=== PATIENT | male | born 1980 | race Caucasian/White ===

== ENCOUNTER 2017-04-27 14:32 | Inpatient (IN) | payer MEDICAID ==
[~2017-04-27] VITALS: Ht 160 cm; Wt 71.5 kg
[2017-04-27] VITALS (20 sets, daily range): BP systolic 116–164; BP diastolic 56–86; PULSE 65–102; RESP 18–29; Ht 160 cm; Wt 71.5 kg
[~2017-04-27 14:32] MED LIST: DESFLURANE 15 MIN ONE; LIDOCAINE 2% (SDV) 5 ML INJ ONE; PROPOFOL 200 MG INJ ONE; SUCCINYLCHOLINE CHLORIDE 100 MG/5 ML SYG IV ONE
[2017-04-27] MEDS ORDERED: ONDANSETRON 4 MG INJ IV STA (14:51)
[2017-04-27] MEDS ORDERED: morphine 4 MG/ML VIAL IV STA ×2 (14:51→16:07)
[2017-04-27] MEDS ORDERED: SOD CHLORIDE 0.9% 1,000 ML IV STA (14:51)
--- NOTE | 2017-04-27 15:21 | RADRPT ---
PROCEDURE: CT Abdomen and Pelvis without contrast. CLINICAL INDICATION: Abdominal pain TECHNIQUE: CT scan of the abdomen and pelvis without contrast was performed on a multi-slice CT [facility] without intravenous contrast. Coronal and sagittal reformatted images were obtained from the axial source images. Images were reviewed on a high-resolution PACS workstation. One or more of the following does reduction techniques were used: Automated exposure control; adjustment of the mA an d/or kV according to patient size; use of the aorta of reconstruction technique. The total exam CTD I equals 11.9 mGy and the total exam DLP equals 717.06 mGy-cm. COMPARISON: None available. FINDINGS: The lung bases are clear. Heart size is normal, and there is no evidence of pericardial thickening or effusion. There is decreased attenuation of the hepatic parenchyma consistent with fatty infiltration. The li felipe, spleen, and pancreas are otherwise normal given the limitations of a noncontrast CT examination . The gallbladder is normal. The adrenal glands are normal. The kidneys without renal calculus or hydronephrosis. The aorta is of normal caliber. There is no retroperitoneal lymph node enlargment. There is no evidence of large or small bowel obstruction. There are multiple appendicoliths within the appendix which appears enlarged measuring up to 1.2 cm in diameter. There are questionable subt le inflammatory changes, particular at the level of the tip of the appendix, best seen on coronal im aging. There is no lauren adjacent inflammation. No fluid collections are seen. There is no free fluid. There is a tiny periumbilical hernia containing only fat No enlarged pelvic sidewall lymph nodes are seen. The bladder is decompressed and collapsed. No f ree fluid is identified. The inguinal regions are unremarkable. The bones are intact. IMPRESSION: 1. Enlarged appendix containing multiple appendicoliths. There is subtle inflammatory change at th e level of the distal tip of the appendix. Findings are concerning for acute appendicitis. 2. Fatty infiltration of the liver. 3. Tiny periumbilical hernia containing only fat. RPTAT: KK .Oscar Orlando MD, MD Date Time Electronically viewed and signed by .Oscar Orlando MD, MD on 04/27/2017 15:21 .Ana
[2017-04-27 15:29] LABS: BASOPHILS % 0.1 % (0.0-2.0); HEMATOCRIT 43.2 % (42.0-52.0); HEMOGLOBIN 15.1 g/dl (14.0-18.0); LYMPHOCYTES # 0.9 10^3/ul (0.8-2.9); MEAN CORPUSCULAR HEMOGLOBIN 31.5 pg (29.0-33.0); MEAN PLATELET VOLUME 9.3 fl (7.4-10.4); MONOCYTES % 6.4 % (0.0-11.0); NEUTROPHIL # 13.3 10^3/ul (1.6-7.5); NEUTROPHILS % 87.1 % (39.0-77.0); PLATELET COUNT 277 10^3/UL (140-415); RED CELL DISTRIBUTION WIDTH 12.4 % (11.5-14.5); WHITE BLOOD COUNT 15.2 10^3/ul (4.8-10.8)
[2017-04-27 15:44] LABS: ALBUMIN 4.7 g/dl (3.3-4.9); ALBUMIN/GLOBULIN RATIO 1.17; BILIRUBIN,INDIRECT 0.8 mg/dl (0-1.1); BILIRUBIN,TOTAL 0.8 mg/dl (0.2-1.3); CALCIUM 9.6 mg/dl (8.4-10.2); CREATININE 0.65 mg/dl (0.61-1.24); POTASSIUM 3.6 mmol/L (3.5-5.1); TOTAL PROTEIN 8.7 g/dl (6.1-8.1)
[2017-04-27] MEDS ORDERED: HYDROmorphONE 1 MG/ML SYG IV STA (16:07)
--- NOTE | 2017-04-27 16:17 | ERD ---
ER Documentation Chief Complaint Date/Time DATE: 04/27/17 TIME: 16:11 Chief Complaint Complains of abdominal pain x 5am this morning (ROYAL MARTINEZ PA-C) HPI 36-year-old male patient with a previous history of seizures presents to the ED complaining of abdominal pain that occurred at 5 am. Reports that he feels nauseous but denies any vomiting. Reports that the pain is mainly in the lower quadrant region below the belly button and radiates diffusely. Describes the pain as achy and crampy. Rates the pain a 10 out of 10. States that his last meal was at 9 am. Reports that he has normal daily bowel movements. Reports that he drinks about 4 cans of beer per day. Patient smokes 1 cigarette per day. Denies any diarrhea, chest pain, shortness of breath, melena, hematemesis , constipation, hemoptysis. Denies any scrotal pain, dysuria, urgency, frequency, hematuria. Patient reports that he no longer gets seizures and does not remember the medication that he previously took for his history of seizures. (ROYAL MARTINEZ PA-C) This patient was seen by myself in conjunction with the PA. Please see the PAs note for full details. Very briefly, this is a 36-year-old male with no significant past medical history who is presenting with acute onset generalized abdominal pain but worse in the right lower quadrant since 5 AM this morning which woke him from sleep. He has had a decreased appetite with nausea but no vomiting. He has not had any fever or chills. He had felt well prior to the onset of his symptoms. (CARLOS GUERRA MD) ROS All systems reviewed and are negative except as per history of present illness. (ROYAL MARTINEZ PA-C) 14 point review of systems was completed and negative other than what was dictated in the HPI (CARLOS GUERRA MD) Medications Home Meds No Active Prescriptions or Reported Meds Allergies Allergies: Coded Allergies: No Known Allergy (Unverified , 04/27/17) PMhx/Soc Medical and Surgical Hx: pt denies Medical Hx, pt denies Surgical Hx (CARLOS GUERRA MD) FmHx Family History: No coronary disease, No diabetes (CARLOS GUERRA MD) Physical Exam Vitals Vital Signs Date Time Temp Pulse Resp B/P Pulse Ox O2 Delivery O2 Flow Rate FiO2 8/7/17 14:36 97.4 81 20 133/70 99 (CARLOS GUERRA MD) Physical Exam Const: [id number], well-nourished. In no acute distress. Head: Atraumatic, normocephalic Eyes: Normal Conjunctiva without injection. No purulent discharge. ENT: Normal external ear, nose. Moist oropharynx without tonsillar exudates. Non -erythematous pharynx. Uvula midline. No drooling. No trismus. Neck: No cervical midline tenderness. Full range of motion. No meningismus. No cervical lymphadenopathy. No JVD. Resp: Clear to auscultation bilaterally. No wheezing, rhonchi, rales, or crackles. No accessory muscle use. No retractions. Cardio: Regular rate and rhythm. No murmurs, rubs or gallops. Abd: Soft, generalized tenderness predominantly below the umbilicus, non distended. Normal bowel sounds. No palpable masses. No rebound tenderness. No guarding. Negative McBurney's point. Positive psoas sign. Positive obturator sign. Skin: No petechiae or rashes Back: No midline tenderness. No CVA tenderness. Ext: No cyanosis, or edema. Neur: Awake and alert. Normal gait. Normal coordination. Psych: Normal Mood and Affect (ROYAL MARTINEZ PA-C) Result Diagram: 04/27/17 1512 04/27/17 1512 Results 24 hrs Laboratory Tests Test 04/27/17 15:12 04/27/17 17:15 White Blood Count 15.210^3/ul Red Blood Count 4.8010^6/ul Hemoglobin 15.1g/dl Hematocrit 43.2% Mean Corpuscular Volume 90.0fl Mean Corpuscular Hemoglobin 31.5pg Mean Corpuscular Hemoglobin Concent 35.0g/dl Red Cell Distribution Width 12.4% Platelet Count 98371^3/UL Mean Platelet Volume 9.3fl Neutrophils % 87.1% Lymphocytes % 6.0% Monocytes % 6.4% Eosinophils % 0.0% Basophils % 0.1% Nucleated Red Blood Cells % 0.0/100WBC Neutrophils # 13.310^3/ul Lymphocytes # 0.910^3/ul Monocytes # 1.010^3/ul Eosinophils # 0.010^3/ul Basophils # 0.010^3/ul Nucleated Red Blood Cells # 0.010^3/ul Sodium Level 141mmol/L Potassium Level 3.6mmol/L Chloride Level 97mmol/L Carbon Dioxide Level 25mmol/L Anion Gap 23 Blood Urea Nitrogen 6mg/dl Creatinine 0.65mg/dl Glucose Level 117mg/dl Calcium Level 9.6mg/dl Total Bilirubin 0.8mg/dl Direct Bilirubin 0.00mg/dl Indirect Bilirubin 0.8mg/dl Aspartate Amino Transf (AST/SGOT) 33IU/L Alanine Aminotransferase (ALT/SGPT) 51IU/L Alkaline Phosphatase 75IU/L Total Protein 8.7g/dl Albumin 4.7g/dl Globulin 4.00g/dl Albumin/Globulin Ratio 1.17 Lipase 84U/L Urine Color YELLOW Urine Clarity CLEAR Urine pH 7.0 Urine Specific [place] 1.010 Urine Ketones 2+mg/dL Urine Nitrite NEGATIVEmg/dL Urine Bilirubin NEGATIVEmg/dL Urine Urobilinogen NEGATIVEmg/dL Urine Leukocyte Esterase NEGATIVELeu/ul Urine Hemoglobin NEGATIVEmg/dL Urine Glucose NEGATIVEmg/dL Urine Total Protein NEGATIVEmg/dl Current Medications Medications (Trade) Dose Ordered Sig/Ngozi Route PRN Reason Start Time Stop Time Status Last Admin Dose Admin Sodium Chloride (NS) 1,000 ml @ 1,000 mls/hr Q1H STAT IV 04/27/17 14:51 04/27/17 15:50 DC 04/27/17 15:16 Morphine Sulfate (morphine) 4 mg ONCE STAT IV 04/27/17 14:51 04/27/17 14:53 DC 04/27/17 15:16 Ondansetron HCl (Zofran Inj) 4 mg ONCE STAT IV 04/27/17 14:51 04/27/17 14:53 DC 04/27/17 15:16 Morphine Sulfate (morphine) 3 mg ONCE STAT IV 04/27/17 16:07 04/27/17 16:08 Cancel Hydromorphone HCl 1 mg 1 mg ONCE STAT IV 04/27/17 16:07 04/27/17 16:08 DC 04/27/17 16:14 Ceftriaxone Sodium 50 ml @ 100 mls/hr ONCE ONCE IVPB 04/27/17 16:30 04/27/17 16:59 DC 04/27/17 17:16 Metronidazole 100 ml @ 100 mls/hr ONCE ONCE IVPB 04/27/17 16:30 04/27/17 17:29 DC Sodium Chloride 1,000 ml @ 1,000 mls/hr Q1H ONCE IV 04/27/17 16:30 04/27/17 17:29 DC 04/27/17 17:16 Sodium Chloride (NS) 1,000 ml @ 80 mls/hr [id number] IV 04/27/17 16:43 04/28/17 05:12 Ondansetron HCl (Zofran Inj) 4 mg BRIDGE ORDER PRN IV NAUSEA AND/OR VOMITING 04/27/17 17:00 04/27/17 17:00 DC Acetaminophen (Tylenol Tab) 650 mg ER BRIDGE PRN PO MILD PAIN/FEVER 04/27/17 17:00 04/27/17 17:00 DC IV Flush (NS 3 ml) 3 ml PER PROTOCOL IV 04/27/17 17:00 Ondansetron HCl (Zofran Tab) 4 mg Q6H PRN PO NAUSEA AND/OR VOMITING 04/27/17 17:00 Ondansetron HCl (Zofran Inj) 4 mg Q6H PRN IV NAUSEA AND/OR VOMITING 04/27/17 17:00 Metoclopramide HCl (Reglan) 10 mg Q6H PRN IV NAUSEA AND/OR VOMITING 04/27/17 17:00 Acetaminophen (Tylenol Tab) 650 mg Q6H PRN PO PAIN LEVEL 1-3 OR FEVER 04/27/17 17:00 Ibuprofen (Motrin) 600 mg Q6H PRN PO PAIN LEVEL 1-3 04/27/17 17:00 Acetaminophen/ Hydrocodone Bitart ([place] (5/325)) 1 tab Q6H PRN PO MODERATE PAIN LEVEL 4-6 04/27/17 17:00 Morphine Sulfate (morphine) 2 mg Q4H PRN IV SEVERE PAIN LEVEL 7-10 04/27/17 17:00 Docusate Sodium (Colace) 100 mg Q12H PRN PO CONSTIPATION 04/27/17 17:00 Magnesium Hydroxide (Milk Of Mag) 30 ml DAILY PRN PO CONSTIPATION 04/27/17 17:00 Bisacodyl (Dulcolax) 5 mg DAILY PRN PO CONSTIPATION 04/27/17 17:00 Enoxaparin Sodium (Lovenox) 40 mg DAILY SC 04/28/17 09:00 (CARLOS GUERRA MD) Procedures/MDM This is a 36-year-old male patient with a previous history of seizures presents to the ED complaining of abdominal pain that started at 5 am. Patient is afebrile and nontoxic-appearing. Patient is in distress due to pain. Patient was further worked up with CBC, CMP, lipase, UA, CT of abdomen and pelvis without contrast. Patient's pain and symptoms have improved after treatment with 4 mg IV morphine, 1 mg IV Dilaudid, 1 L of normal saline. A differential diagnosis considered includes but is not limited to gastritis, GERD, peptic ulcer disease, cholecystitis, choledocholithiasis, cholangitis, pancreatitis, appendicitis, bowel obstruction, ileus, volvulus, nephrolithiasis , pyelonephritis, hepatitis, perforated viscus, diverticulitis, abdominal hernia , acute abdomen, mesenteric ischemia or other emergent conditions. CBC: Leukocytosis of 15.2 No e/o anemia. CMP: No e/o severe acidosis, alkalosis, renal failure, diabetic ketoacidosis, liver disease Lipase within normal limits. Pending urinalysis PROCEDURE: CT Abdomen and Pelvis without contrast. CLINICAL INDICATION: Abdominal pain TECHNIQUE: CT scan of the abdomen and pelvis without contrast was performed on a multi-slice CT scanner without intravenous contrast. Coronal and sagittal reformatted images were obtained from the axial source images. Images were reviewed on a high-resolution PACS workstation. One or more of the following does reduction techniques were used: Automated exposure control; adjustment of the mA and/or kV according to patient size; use of the aorta of reconstruction technique. The total exam CTDI equals 11.9 mGy and the total exam DLP equals 717.06 mGy-cm. COMPARISON: None available. FINDINGS: The lung bases are clear. Heart size is normal, and there is no evidence of pericardial thickening or effusion. There is decreased attenuation of the hepatic parenchyma consistent with fatty infiltration. The liver, spleen, and pancreas are otherwise normal given the limitations of a noncontrast CT examination. The gallbladder is normal. The adrenal glands are normal. The kidneys without renal calculus or hydronephrosis. The aorta is of normal caliber. There is no retroperitoneal lymph node enlargment. There is no evidence of large or small bowel obstruction. There are multiple appendicoliths within the appendix which appears enlarged measuring up to 1.2 cm in diameter. There are questionable subtle inflammatory changes, particular at the level of the tip of the appendix, best seen on coronal imaging. There is no lauren adjacent inflammation. No fluid collections are seen. There is no free fluid. There is a tiny periumbilical hernia containing only fat No enlarged pelvic sidewall lymph nodes are seen. The bladder is decompressed and collapsed. No free fluid is identified. The inguinal regions are unremarkable. The bones are intact. IMPRESSION: 1. Enlarged appendix containing multiple appendicoliths. There is subtle inflammatory change at the level of the distal tip of the appendix. Findings are concerning for acute appendicitis. 2. Fatty infiltration of the liver. 3. Tiny periumbilical hernia containing only fat. Patient has an enlarged appendix containing multiple appendicoliths with subtle inflammatory change at the level of distal tip of the appendix concerning for acute appendicitis. This case has been discussed with my supervising physician , Dr. Guerra who will consult the general surgeon. Dr. Guerra also evaluated patient at this time. An additional 1 L normal saline, 1 g IV ceftriaxone, 500 mg IV Flagyl was ordered to treat patient. Patient will be admitted at this time for surgical consultation. Patient's last meal was at 9 AM on April 27, 2017. Patient understood his admission. Patient's questions were answered. Patient is hemodynamically stable. (ROYAL MARTINEZ PA-C) Patient symptoms warrant an abdominal workup. The patient's blood work revealed leukocytosis with a white count of 15. The patient's CT scan revealed findings concerning for an acute appendicitis. The patient will be admitted to the hospitalist service for further evaluation and management. General surgical consultation was completed. The patient will require antibiotics in the hospital. The PA was instructed to order Rocephin and Flagyl. Patient also be given IV fluids. His pain and nausea will be controlled while in the ER. (CARLOS GUERRA MD) Departure Diagnosis: Primary Impression: Appendicitis Appendicitis type: acute appendicitis Acute appendicitis type: unspecified acute appendicitis type Qualified Code: K35.80 - Acute appendicitis, unspecified acute appendicitis type Condition: Fair ROYAL MARTINEZ PA-C Apr 27, 2017 16:17 CARLOS GUERRA MD Apr 27, 2017 17:44
[2017-04-27] MEDS ORDERED: CEFTRIAXONE 1 GM/50 ML (PMX) 50 ML IVPB ONE (16:30)
[2017-04-27] MEDS ORDERED: metroNIDAZOLE 500 MG/NS (PMX) 100 ML IVPB ONE (16:30)
[2017-04-27] MEDS ORDERED: SOD CHLORIDE 0.9% 1,000 ML IV ONE (16:30)
[2017-04-27] MEDS ORDERED: SOD CHLORIDE 0.9% 1,000 ML IV SCH (16:43)
--- NOTE | 2017-04-27 16:47 | HP ---
Date/Time of Note Date/Time of Note DATE: 04/27/17 TIME: 16:47 Assessment/Plan VTE Prophylaxis VTE Prophylaxis Intervention: SCD's Assessment/Plan Assessment/Plan 36 yo M admitted for abd pain, found to have acute appendicitis PLAN OR tanner, gen surg already following abx/FEN as per gen surg close monitoring for possible EtOH withdrawal post op HPI/ROS Admit Date/Time Admit Date/Time Hx of Present Illness CC: abd pain x 1 day HPI 36 yo M with pmhx seizures not on AEDs x several mos with no seizure episodes, moderate EtOH consumption presents with abd pain x 1 day. Pt awoke this AM with severe abd pain. Tried conservative management at home with no improvement. Pt came to ER and CT with appendicitis. PMH/Family/Social Past Medical History as per HPI Past Surgical History Past Surgical Hx: no surgical history Family History Significant Family History: no pertinent family hx Social History 3-4 beers/day Smoking Status: Current some day smoker Exam/Review of Systems Vital Signs Vitals Vital Signs Date Time Temp Pulse Resp B/P Pulse Ox O2 Delivery O2 Flow Rate FiO2 04/27/17 14:36 97.4 81 20 133/70 99 Exam Exam nad, laying in bed EOMI MMM no mrg lungs clear abd soft no rashes no le edema labs and imaging reviewed Labs Result Diagram: 04/27/17 1512 04/27/17 1512 Medications Medications Current Medications Ceftriaxone Sodium 50 ml @ 100 mls/hr ONCE ONCE IVPB ; Start 04/27/17 at 16:30 ; Stop 04/27/17 at 16:59 Metronidazole 100 ml @ 100 mls/hr ONCE ONCE IVPB ; Start 04/27/17 at 16:30; Stop 04/27/17 at 17:29 Sodium Chloride 1,000 ml @ 1,000 mls/hr Q1H ONCE IV ; Start 04/27/17 at 16:30; Stop 04/27/17 at 17:29 Sodium Chloride (NS) 1,000 ml @ 80 mls/hr [id number] IV ; Start 04/27/17 at 16:43; Stop 04/28/17 at 05:12 MEGAN RANDHAWA MD Apr 27, 2017 16:47
[2017-04-27] MEDS ORDERED: NACL 0.9% 3 ML SYG IV SCH (17:00)
[2017-04-27] MEDS ORDERED: ONDANSETRON 4 MG INJ IV PRN ×4 (17:00→19:30)
[2017-04-27] MEDS ORDERED: METOCLOPRAMIDE 10 MG INJ IV PRN (17:00)
[2017-04-27] MEDS ORDERED: DOCUSATE SODIUM 100 MG CAP PO PRN (17:00)
[2017-04-27] MEDS ORDERED: morphine 2 MG INJ IV PRN (17:00)
[2017-04-27] MEDS ORDERED: HYDROCODONE/APAP (5/325) TAB PO PRN ×2 (17:00→19:30)
[2017-04-27] MEDS ORDERED: MAGNESIUM HYDROXIDE 30ML CUP PO PRN (17:00)
[2017-04-27] MEDS ORDERED: IBUPROFEN 600 MG TAB PO PRN (17:00)
[2017-04-27] MEDS ORDERED: BISACODYL (EC) 5 MG TAB PO PRN (17:00)
[2017-04-27] MEDS ORDERED: ACETAMINOPHEN 325 MG TAB PO PRN ×3 (17:00→19:30)
[2017-04-27] MEDS ORDERED: ONDANSETRON 4 MG TAB PO PRN (17:00)
[2017-04-27 17:32] LABS: ADD UMIC NO; UR ASCORBIC ACID NEGATIVE (NEGATIVE); UR BILIRUBIN (Dip) NEGATIVE (NEGATIVE); UR BLOOD (Dip) NEGATIVE (NEGATIVE); UR CLARITY CLEAR (CLEAR); UR COLOR YELLOW (YELLOW); UR GLUCOSE (Dip) NEGATIVE (NEGATIVE); UR KETONES (Dip) 2+ mg/dL (NEGATIVE); UR LEUKOCYTE ESTERASE (Dip) NEGATIVE Leu/ul (NEGATIVE); UR NITRITE (Dip) NEGATIVE (NEGATIVE); UR TOTAL PROTEIN (Dip) NEGATIVE (NEGATIVE); UR UROBILINOGEN (Dip) NEGATIVE (NEGATIVE)
--- NOTE | 2017-04-27 17:32 | CONS ---
Date/Time of Note Date/Time of Note DATE: 04/27/17 TIME: 17:29 Assessment/Plan Assessment/Plan Chief Complaint/Hosp Course 36-year-old male with acute appendicitis. This has been confirmed via CT scan. * Continue nothing by mouth * Broad-spectrum intravenous antibiotics * IV fluid hydration * Pain control Definitive treatment will consist of laparoscopic appendectomy; possible open. This has been explained to the patient along with all risks and benefits of the procedure. He fully understands and is agreeable to the treatment plan as outlined. Informed consent will be obtained and the patient will be scheduled for laparoscopic appendectomy; possible open Problems: Consultation Date/Type/Reason Admit Date/Time Date of Consultation: Apr 27, 2017 Type of Consultation: GENERAL SURGERY Reason for Consultation Abdominal pain Hx of Present Illness Patient is a 36-year-old male who presented to the emergency room complaining of abdominal pain. The pain started approximately 5 AM this morning. It was initially periumbilical and epigastric in location. It has since migrated towards the lower abdomen and right lower quadrant. He reports some nausea, but no vomiting. There is also been diarrhea. He denies any fever /chills. He denies any similar episodes of pain in the past. On arrival to the emergency room he was found to be hemodynamically stable. He had a leukocytosis of 15,000. A CT scan of the abdomen and pelvis showed dilated appendix with multiple appendicoliths and some mild inflammatory changes. 14 point review of systems was conducted and was negative except for that which is mentioned in HPI Past Medical History Medical History: other (Seizure disorder) Past Surgical History Past Surgical Hx: no surgical history Family History Significant Family History: no pertinent family hx Social History Alcohol Use: heavy Smoking Status: Current some day smoker Drug Use: other Exam/Review of Systems Vital Signs Vitals Vital Signs Date Time Temp Pulse Resp B/P Pulse Ox O2 Delivery O2 Flow Rate FiO2 04/27/17 14:36 97.4 81 20 133/70 99 Exam GENERAL: Awake, alert, oriented x 3. In mild discomfort secondary to abdominal pain. SKIN: No jaundice. HEENT: PERRLA, EOMI, No Scleral Icterus NECK: Supple without JVD CARDIOVASCULAR: S1S2, regular rate and rhythm. No murmurs appreciated. RESPIRATORY: Clear to auscultation bilaterally. ABDOMEN: Soft, bowel sounds present, nondistended, right lower quadrant and suprapubic tenderness to palpation with localized rebound. No evidence of diffuse peritonitis. EXTREMITIES: Free range of motion x 4. No cyanosis, edema, or clubbing. NEUROLOGIC: Cranial nerves II-XII are intact. Sensation is intact grossly. Results Result Diagram: 04/27/17 1512 04/27/17 1512 Results 24 hrs Laboratory Tests Test 04/27/17 15:12 White Blood Count 15.2 H Red Blood Count 4.80 Hemoglobin 15.1 Hematocrit 43.2 Mean Corpuscular Volume 90.0 Mean Corpuscular Hemoglobin 31.5 Mean Corpuscular Hemoglobin Concent 35.0 Red Cell Distribution Width 12.4 Platelet Count 277 Mean Platelet Volume 9.3 Neutrophils % 87.1 H Lymphocytes % 6.0 L Monocytes % 6.4 Eosinophils % 0.0 Basophils % 0.1 Nucleated Red Blood Cells % 0.0 Neutrophils # 13.3 H Lymphocytes # 0.9 Monocytes # 1.0 H Eosinophils # 0.0 Basophils # 0.0 Nucleated Red Blood Cells # 0.0 Sodium Level 141 Potassium Level 3.6 Chloride Level 97 Carbon Dioxide Level 25 Anion Gap 23 H Blood Urea Nitrogen 6 L Creatinine 0.65 Glucose Level 117 Calcium Level 9.6 Total Bilirubin 0.8 Direct Bilirubin 0.00 Indirect Bilirubin 0.8 Aspartate Amino Transf (AST/SGOT) 33 Alanine Aminotransferase (ALT/SGPT) 51 Alkaline Phosphatase 75 Total Protein 8.7 H Albumin 4.7 Globulin 4.00 H Albumin/Globulin Ratio 1.17 Lipase 84 Medications Medications Current Medications Metronidazole 100 ml @ 100 mls/hr ONCE ONCE IVPB ; Start 04/27/17 at 16:30; Stop 04/27/17 at 17:29 Sodium Chloride 1,000 ml @ 1,000 mls/hr Q1H ONCE IV Last administered on t 17:16; Admin Dose 1,000 MLS/HR; Start 04/27/17 at 16:30; Stop 04/27/17 at 17: 29 Sodium Chloride (NS) 1,000 ml @ 80 mls/hr [id number] IV ; Start 04/27/17 at 16:43; Stop 04/28/17 at 05:12 Ondansetron HCl (Zofran Tab) 4 mg Q6H PRN PO NAUSEA AND/OR VOMITING; Start 04/27 at 17:00 Ondansetron HCl (Zofran Inj) 4 mg Q6H PRN IV NAUSEA AND/OR VOMITING; Start 04/27 at 17:00 Metoclopramide HCl (Reglan) 10 mg Q6H PRN IV NAUSEA AND/OR VOMITING; Start 04/27 at 17:00 Acetaminophen (Tylenol Tab) 650 mg Q6H PRN PO PAIN LEVEL 1-3 OR FEVER; Start at 17:00 Ibuprofen (Motrin) 600 mg Q6H PRN PO PAIN LEVEL 1-3; Start 04/27/17 at 17:00 Acetaminophen/ Hydrocodone Bitart ([place] (5/325)) 1 tab Q6H PRN PO MODERATE PAIN LEVEL 4-6; Start 04/27/17 at 17:00 Morphine Sulfate (morphine) 2 mg Q4H PRN IV SEVERE PAIN LEVEL 7-10; Start at 17:00 Docusate Sodium (Colace) 100 mg Q12H PRN PO CONSTIPATION; Start 04/27/17 at 17: 00 Magnesium Hydroxide (Milk Of Mag) 30 ml DAILY PRN PO CONSTIPATION; Start at 17:00 Bisacodyl (Dulcolax) 5 mg DAILY PRN PO CONSTIPATION; Start 04/27/17 at 17:00 Enoxaparin Sodium (Lovenox) 40 mg DAILY SC ; Start 04/28/17 at 09:00 Procedures Procedures PROCEDURE: CT Abdomen and Pelvis without contrast. CLINICAL INDICATION: Abdominal pain TECHNIQUE: CT scan of the abdomen and pelvis without contrast was performed on a multi-slice CT scanner without intravenous contrast. Coronal and sagittal reformatted images were obtained from the axial source images. Images were reviewed on a high-resolution PACS workstation. One or more of the following does reduction techniques were used: Automated exposure control; adjustment of the mA and/or kV according to patient size; use of the aorta of reconstruction technique. The total exam CTDI equals 11.9 mGy and the total exam DLP equals 717.06 mGy-cm. COMPARISON: None available. FINDINGS: The lung bases are clear. Heart size is normal, and there is no evidence of pericardial thickening or effusion. There is decreased attenuation of the hepatic parenchyma consistent with fatty infiltration. The liver, spleen, and pancreas are otherwise normal given the limitations of a noncontrast CT examination. The gallbladder is normal. The adrenal glands are normal. The kidneys without renal calculus or hydronephrosis. The aorta is of normal caliber. There is no retroperitoneal lymph node enlargment. There is no evidence of large or small bowel obstruction. There are multiple appendicoliths within the appendix which appears enlarged measuring up to 1.2 cm in diameter. There are questionable subtle inflammatory changes, particular at the level of the tip of the appendix, best seen on coronal imaging. There is no lauren adjacent inflammation. No fluid collections are seen. There is no free fluid. There is a tiny periumbilical hernia containing only fat No enlarged pelvic sidewall lymph nodes are seen. The bladder is decompressed and collapsed. No free fluid is identified. The inguinal regions are unremarkable. The bones are intact. IMPRESSION: 1. Enlarged appendix containing multiple appendicoliths. There is subtle inflammatory change at the level of the distal tip of the appendix. Findings are concerning for acute appendicitis. 2. Fatty infiltration of the liver. 3. Tiny periumbilical hernia containing only fat. RPTAT: KK .Oscar Orlando MD, MD Date Time Electronically viewed and signed by .Oscar Orlando MD, on 2016 15:21 .B/ CC: ROYAL MARTINEZ PA-C, MICHAEL A. MD Apr 27, 2017 17:32
[2017-04-27] MEDS ORDERED: BUPIVACAINE 0.25%/EPI (SDV) 10 ML INJ ONE (18:11)
[2017-04-27] MEDS ORDERED: DIPHENHYDRAMINE 50 MG INJ IV PRN (18:30)
[2017-04-27] MEDS ORDERED: PROCHLORPERAZINE 10 MG INJ IV PRN (18:30)
[2017-04-27] MEDS ORDERED: LORAZEPAM 2 MG INJ IV PRN (18:30)
[2017-04-27] MEDS ORDERED: HYDROmorphONE (0.2 MG/ML) 10ML SYG IV PRN ×2 (18:30)
[2017-04-27] MEDS ORDERED: MEPERIDINE 25 MG INJ IV PRN (18:30)
[2017-04-27] MEDS ORDERED: FENTAnyl 50 MCG/ML VIAL ONE (18:43)
[2017-04-27] MEDS ORDERED: ONDANSETRON 4 MG INJ ONE (18:44)
[2017-04-27] MEDS ORDERED: DEXAMETHASONE 4 MG/ML 1 ML INJ ONE (18:44)
[2017-04-27] MEDS ORDERED: MIDAZOLAM 1 MG/ML 2 ML INJ ONE (18:44)
[2017-04-27] MEDS ORDERED: FAMOTIDINE 20 MG INJ ONE (18:45)
[2017-04-27] MEDS ORDERED: PHENYLephrine (100 MCG/ML) 5ML SYG ONE (18:48)
[2017-04-27] MEDS ORDERED: HYDROCODONE/APAP (10/325) TAB PO PRN (19:30)
[2017-04-27] MEDS ORDERED: HYDROmorphONE 1 MG/ML SYG IV PRN (19:30)
[2017-04-27] MEDS ORDERED: AMPICILLIN/SULB 3 GM/NS (PMX) 100 ML IVPB SCH (19:30)
--- NOTE | 2017-04-27 19:30 | OPR ---
Date/Time of Note Date/Time of Note DATE: 04/27/17 TIME: 19:26 Operative Report Procedure Date: Apr 27, 2017 Preoperative Diagnosis Acute appendicitis with localized peritonitis Postoperative Diagnosis Acute appendicitis with localized peritonitis Operation Performed Laparoscopic appendectomy Surgeon: LAVINIA AN MD Anesthesia Type: general Anesthesiologist: SULY WHITTEN DO Estimated Blood Loss: minimal Specimens Appendix Complications: no Pt Condition Post Procedure: stable Disposition: PACU Indications Patient is a 36-year-old male who presented to the emergency room complaining of a 1 day history of right lower quadrant abdominal pain. The patient had clinical signs and symptoms of acute appendicitis which was confirmed via CT scan. He was therefore admitted, kept nothing by mouth, started on broad-spectrum intravenous antibiotics and scheduled for laparoscopic appendectomy; possible open as definitive treatment. All risks and benefits of the procedure including but not limited to: Wound infection, excessive bleeding, injury to intra-abdominal organs, conversion to open procedure etc. were explained to the patient in full detail. The patient fully understood and wished to proceed with the procedure. Informed consent was therefore obtained. Operative\Procedure Findings Nonperforated appendicitis Procedure Description The patient was brought to the operating room and placed supine on the operating table. Bilateral sequential compression devices were placed on both lower extremities. Patient was given a dose of broad-spectrum intravenous antibiotics while in the emergency room. After the induction of smooth general endotracheal anesthesia the patient's abdomen was prepped and draped in the standard surgical fashion. A 5 mm incision was made in the superior umbilicus and a Veress needle was used to access the intra-abdominal cavity atraumatically. Pneumoperitoneum was then obtained and the Veress needle was exchanged for a 5 mm trocar through which a 5 mm laparoscope was placed. Two further working ports were then placed, a 12 mm port in the midline suprapubic area and another 5 mm port midway between the suprapubic and umbilical port sites. All port sites were anesthetized with 0.25% Marcaine with epinephrine prior to incision. Diagnostic laparoscopy showed murky fluid in the patient's pelvis. This was suctioned out using a pool sucker. Attention was then turned towards the right lower quadrant. Using atraumatic graspers, the appendix was grasped and retracted superiorly and medially exposing the mesoappendix. The appendix appeared erythematous and inflamed consistent with acute appendicitis, but not perforated. Using the harmonic scalpel the mesoappendix was taken down to the level of the appendiceal base. The appendix was then transected at its base using a firing of the laparoscopic LEXA stapler. Once completely free the appendix was placed in an Endo Catch bag and withdrawn through the suprapubic port site and passed off the field as specimen. Hemostasis was then inspected for and noted to be total. The abdomen was then irrigated with copious amounts of warm normal saline and the irrigant returned crystal clear. The fascia of the suprapubic port site was then reapproximated using an Endo Close device and 0 Vicryl suture. Pneumoperitoneum was then released and all remaining trochars were withdrawn under direct vision. The subcutaneous tissues were irrigated with more warm normal saline and further local anesthesia was applied around the skin of the incision sites. The skin was then reapproximated using 4-0 Monocryl sutures in subcuticular fashion. The incisions were cleaned and Dermabond was applied and the patient was awoken from anesthesia and transported to the recovery room in stable condition. All counts were correct at the end of the case x 2. LAVINIA AN MD Apr 27, 2017 19:30
[2017-04-27] MEDS: AMPICILLIN/SULB 3 GM/NS (PMX) 100 ML IVPB SCH (22:25)
[2017-04-28] MEDS ORDERED: LORAZEPAM 2 MG INJ IV ONE ×2 (01:51→02:30)
[2017-04-28] MEDS ORDERED: LORAZEPAM 2 MG INJ IV PRN ×2 (02:30→02:32)
[2017-04-28] MEDS: AMPICILLIN/SULB 3 GM/NS (PMX) 100 ML IVPB SCH ×3 (04:24→14:25)
[2017-04-28 05:32] LABS: ABNORMAL IP MESSAGE 1; BASOPHILS % 0.1 % (0.0-2.0); HEMATOCRIT 41.3 % (42.0-52.0); LYMPHOCYTES # 0.6 10^3/ul (0.8-2.9); LYMPHOCYTES % 4.8 % (15.0-51.0); MEAN CORPUSCULAR HEMOGLOBIN 31.1 pg (29.0-33.0); MEAN CORPUSCULAR HGB CONC 33.9 g/dl (32.0-37.0); MEAN CORPUSCULAR VOLUME 91.8 fl (82.0-101.0); MONOCYTE # 0.5 10^3/ul (0.3-0.9); NEUTROPHIL # 10.6 10^3/ul (1.6-7.5); NEUTROPHILS % 90.9 % (39.0-77.0); PLATELET COUNT 259 10^3/UL (140-415); POSITIVE DIFF @See below; RED CELL DISTRIBUTION WIDTH 12.5 % (11.5-14.5); WHITE BLOOD COUNT 11.7 10^3/ul (4.8-10.8)
[2017-04-28 05:47] LABS: CALCIUM 9.1 mg/dl (8.4-10.2); CREATININE 0.75 mg/dl (0.61-1.24)
[2017-04-28] MEDS: CHLORDIAZEPOXIDE 25 MG CAP PO SCH ×2 (08:17→12:56)
[2017-04-28 08:37] VITALS: BP 113/72; RESP 16
[2017-04-28] MEDS ORDERED: ENOXAPARIN 40 MG/0.4 ML SYG SC SCH (09:00)
[2017-04-28 13:59] VITALS: BP 119/62; RESP 16
[2017-04-28] MEDS ORDERED: HYDR-906 PO (17:26)
[2017-04-28] MEDS ORDERED: DOCU100C PO (17:36)
--- NOTE | 2017-04-28 17:39 | PDOCDIS ---
Discharge Instructions CONDITION Patient Condition: Stable HOME CARE INSTRUCTIONS: Special Diet: REGULAR FOLLOW UP/APPOINTMENTS Follow-up Plan Activity * Resume light activities around your home as soon as possible. * Dont lift anything heavier than 15 pounds for the next 2 weeks * Limit sports and strenuous activities for 1 or 2 weeks. * Shower as usual: * Gently wash around your incisions with soap and water. * Dont bathe or soak in a tub until your incisions are well healed. * Wear loose-fitting clothes. This will help you be more comfortable and cause less irritation around your incisions. * Dont drive until you are no longer taking prescription pain medication. Diet * Eat a bland, low-fat diet, such as: * Well-cooked soft cereals * Mashed potatoes * Plain toast or bread, crackers * Plain spaghetti * Rice * Macaroni (plain or with cheese) * Cottage cheese * Puddings * Low-fat yogurt * Low-fat milk * Ripe bananas * Drink 6 to 8 glasses of water a day, unless directed otherwise. * If you are constipated, take a fiber laxative such as Metamucil. When to call your healthcare provider Call your healthcare provider right away if you have any of the following: * Swelling, oozing, worsening pain, or unusual redness around the incision * Fever of 100.4F (38C) or higher, or as directed by your healthcare provider * Increasing abdominal pain * Severe diarrhea, bloating, or constipation * Nausea or vomiting OTHER ORDERS: Other Orders: Follow up with the surgeon Dr Salas in 1-2 weeks. Please call to schedule your appointment Office Address [id number] [place] [address] [place] [id number] Office MEGAN RANDHAWA MD Apr 28, 2017 17:39
--- NOTE | 2017-04-28 17:44 | DS ---
Date/Time of Note Date/Time of Note DATE: 04/28/17 TIME: 17:43 Discharge Summary Admission/Discharge Info Admit Date/Time Apr 27, 2017 at 20:45 Discharge Date/Time Discharge Diagnosis acute appendicitis Patient Condition: Good Consults general surgery Procedures laproscopic appendectomy 8.7.17 Hx of Present Illness CC: abd pain x 1 day HPI 36 yo M with pmhx seizures not on AEDs x several mos with no seizure episodes, moderate EtOH consumption presents with abd pain x 1 day. Pt awoke this AM with severe abd pain. Tried conservative management at home with no improvement. Pt came to ER and CT with appendicitis. Hospital Course Pt underwent appendectomy date of admission. Post op course uncomplicated. WBCs improved as did pain. Pt discharged with pain meds, advised not to lift >15 pounds x 2 weeks and f/u with in gen surg clinic in 1-2 weeks Home Meds Active Scripts Docusate Sodium (Docu Soft) 100 Mg Capsule, 100 MG PO DAILY for 7 Days, #7 CAP Prov:MEGAN RANDHAWA MD 04/28/17 Primary Care Provider Care Physician No Primary Pending Labs Laboratory Tests Test 04/28/17 04:28 White Blood Count 11.710^3/ul (4.8-10.8) Red Blood Count 4.5010^6/ul (4.70-6.10) Hemoglobin 14.0g/dl (14.0-18.0) Hematocrit 41.3% (42.0-52.0) Mean Corpuscular Volume 91.8fl (82.0-101.0) Mean Corpuscular Hemoglobin 31.1pg (29.0-33.0) Mean Corpuscular Hemoglobin Concent 33.9g/dl (32.0-37.0) Red Cell Distribution Width 12.5% (11.5-14.5) Platelet Count 75284^3/UL (140-415) Mean Platelet Volume 10.0fl (7.4-10.4) Neutrophils % 90.9% (39.0-77.0) Lymphocytes % 4.8% (15.0-51.0) Monocytes % 4.0% (0.0-11.0) Eosinophils % 0.0% (0.0-7.0) Basophils % 0.1% (0.0-2.0) Nucleated Red Blood Cells % 0.0/100WBC (0.0-0.0) Neutrophils # 10.610^3/ul (1.6-7.5) Lymphocytes # 0.610^3/ul (0.8-2.9) Monocytes # 0.510^3/ul (0.3-0.9) Eosinophils # 0.010^3/ul (0.0-0.5) Basophils # 0.010^3/ul (0.0-0.1) Nucleated Red Blood Cells # 0.010^3/ul (0.0-0.0) Sodium Level 143mmol/L (135-144) Potassium Level 4.0mmol/L (3.5-5.1) Chloride Level 103mmol/L (97-110) Carbon Dioxide Level 25mmol/L (21-31) Anion Gap 19 (8-16) Blood Urea Nitrogen 9mg/dl (7-20) Creatinine 0.75mg/dl (0.61-1.24) Glucose Level 138mg/dl (70-220) Calcium Level 9.1mg/dl (8.4-10.2) Copies To: CC: LAVINIA AN MD, ELLEN MD Apr 28, 2017 17:44
[2017-04-29] MEDS ORDERED: CHLORDIAZEPOXIDE 25 MG CAP PO SCH (09:00)
[2017-04-30] MEDS ORDERED: CHLORDIAZEPOXIDE 25 MG CAP PO SCH (09:00)
== END 2017-04-28 18:47 | disposition home or self-care (01) | DRG 340 ==
LOC: FTE 14:32 → SDS 17:46 → MS1 20:45 → SDS 20:48
PROVIDERS: ADMIT Internal Medicine; ATTEND Surgery
PROC: 0DTJ4ZZ Resection of Appendix, Percutaneous Endoscopic Approach (ICD-10-PCS; principal; 2017-04-27 19:00)
DX: K35.3 Acute appendicitis with localized peritonitis (principal); K76.0 Fatty (change of) liver, not elsewhere classified; G40.909 Epilepsy, unspecified, not intractable, without status epilepticus
CPT/HCPCS: 74176; 80048; 80053; 81003; 83690; 85025; 88304; J0295; J0696; J1100; J1170; J1650; J2060; J2175; J2250; J2270; J2370; J2405; J3010; J7030; J7999